=== PATIENT | male | born 1955 | race Caucasian/White ===

== ENCOUNTER 2016-05-25 13:45 | Inpatient (IN) | payer OTHER ==
[~2016-05-25] VITALS: Ht 177.8 cm; Wt 102.1 kg
[2016-05-25 13:58] VITALS: BP 137/92
[2016-05-25] MEDS ORDERED: FLEET ENEMA PR PRN (14:00)
[2016-05-25] MEDS ORDERED: MOM 30ML SUSPENSION UDC PO PRN (14:00)
[2016-05-25] MEDS ORDERED: PERCOCET 5MG/325MG TAB PO PRN ×2 (14:00)
[2016-05-25] MEDS ORDERED: traZODone 50 MG TAB PO PRN (14:15)
--- NOTE | 2016-05-25 15:48 | REP ---
Clinical: Trauma. Fall. Technique: AP and axial views of the right clavicle. Findings: Age-related degenerative changes at the acromioclavicular joint noted with possible acute subluxation. No acute fracture. Impression: Age-related degenerative changes at the acromioclavicular joint. No acute fracture. Signed by Dwayne Shafer MD 05/25/2016 03:39 P
[2016-05-25] MEDS ORDERED: COLA100C PO (15:55)
[2016-05-25] MEDS ORDERED: TRAZ50TA4 PO (15:55)
[2016-05-25] MEDS ORDERED: CIPRODEX AD (15:55)
[2016-05-25] MEDS ORDERED: LIDO5DIS36 TD (15:55)
[2016-05-25] MEDS ORDERED: MIRA33504 PO (15:55)
[2016-05-25] MEDS ORDERED: KEPP1TAB2 PO (15:55)
[2016-05-25] MEDS ORDERED: KETO30VL IV (15:55)
[2016-05-25] MEDS ORDERED: TYLE325T5 PO (15:55)
[2016-05-25] MEDS ORDERED: IPRASOL4 INH (15:56)
[2016-05-25] MEDS ORDERED: MUCI600T34 PO (15:56)
[2016-05-25] MEDS ORDERED: SENN8.6T10 PO (16:01)
[2016-05-25] MEDS ORDERED: HEPA50VL SQ (16:01)
[2016-05-25] MEDS ORDERED: GRX1OIN TOP (16:01)
[2016-05-25] MEDS ORDERED: [UNRECOGNIZED DRUG - CODE] TOP (16:04)
--- NOTE | 2016-05-25 16:21 | HPEPDOC ---
[employer] Note ADMISSION H&P + STAS DATE OF ADMISSION: 05/25/2016 DATE OF SERVICE: 05/25/2016 IDENTIFICATION STATEMENT: Patient is a 60-year-old man with fall from ladder/ off scaffolding sustaining multiple medical injuries including a subarachnoid hemorrhage and skull fracture. Thereve been no significant changes in the patients condition since the preadmission screening. 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 Patient reportedly lost consciousness for at least 1 hour and when he came to was able to call his . The noticed on altered speech and called a friend for help. Patient was initially brought to [facility] where for underwent reduction of dislocation of the right hand fourth and fifth digits as well as left-sided chest tube for pneumothorax. He was transferred as a level II trauma to [facility]. While at [facility] he was evaluated by neurosurgery, but no surgery was indicated. Patient also had discharge from the right ear for which she was evaluated by ENT, dx with fracture through the clivus with acute hemorrhage into the sphenoid sinus. They recommended nasal precautions and ciprodex to the right ear twice a day for 5 days for right canal laceration. Arrangements were made for outpatient follow-up and audiogram after discharge. He underwent serial CAT scans of the head and was placed on Keppra 750 twice a day for seizure prophylaxis. Injuries documented in provided paperwork (no imaging reports or films were provided) include scattered subarachnoid hemorrhages, intraparenchymal hemorrhages, right temporal bone acute linear fracture and acute linear fracture through the clivus and basisphoid with acute hemorrhage into the sphenoid sinus, posterior right sided rib fractures #1 through 11, left sided rib fractures #1 through 2, bilateral pneumothorax status post left chest tube, right adrenal hemorrhage, and right fourth and fifth digit injury. Due to decline in the patients baseline functional status and need for continued medical care, recommendation was for acute rehabilitation. On 2016 the patient was deemed stable for discharge to [facility] inpatient rehabilitation unit. On evaluation today, the patient reports overall feeling much better. He does report intermittent lightheadedness and vertigo. He reports productive cough and difficulty coughing secondary to his rib fracture pain. He reports significant right shoulder pain and difficulty with lifting the right shoulder. New also new is bilateral ankle edema along with modeling bilateral feet. He denies any substernal chest pain, diaphoresis, nausea/vomiting, diaphoresis, constipation/diarrhea or dysuria. PAST MEDICAL HISTORY: Various musculoskeletal minor injuries and lacerations. Patient reports he has abused his right rotator cuff. PAST SURGICAL HISTORY: Laceration repairs ALLERGIES: No known drug allergies MEDICATIONS: Acetaminophen 3 650 mg every 6 hours as needed for pain Proventil metered-dose inhaler 2 puffs every 6 hours as needed for wheezing Dulcolax 10 mg suppository 1 daily as needed Colace 100 mg twice a day Mucinex 600 mg twice a day Heparin 5000 units every 8 hours Lidoderm patch to the ribs every 12 hours Roxicodone 5-10 mg every 3 hours as needed for pain MiraLAX 1 packet daily as needed Senna 2 tabs nightly Trazodone 50 mg daily at bedtime. FAMILY HISTORY: Mother was morbidly obese and soft. From a cardiac issues at the age of 65 to cardiac condition. Father suffered from colitis and at the age of 89 from old age. SOCIAL HISTORY: She lives with his in a two-story apartment home, they live on the first floor there are 5-6 steps to enter the house. There child lives on the second floor. Patient denies use of tobacco, alcohol or illicit drugs, past or present. Review of Systems: General: no chills, +fatigue, no weight changes. Eyes: no change of visionEars, Nose & Throat: +decreased hearing R>L, + discharge from ear. Cardiovascular: no chest pain, claudication, + edema, no syncopal episodes. Pul: +productive cough, no SOB. GI: no abdominal pain, GERD, N/V, C/D , BRBPR/tarry stools, incontinence. Genitourinary: no dysuria. Musculoskeletal: Low back achiness, worse in the morning. Right shoulder pain, aching and sharp worse with trying to use the arm, remits with rest. Denies any radiating neck or lower limb pain, denies any muscle spasms. Neurological: no numbness, paresthesias, no tremors, progressive weakness, seizures, ABDULLAHI. Hematological: No bleeding disorders. Skin: +modeling feet b/l, started yesterday or today. No rashes. Psychiatric: no depression, anxiety, behavioral issues. VITAL SIGNS: Temperature 97.6F, pulse 66, respiratory rate of 20, blood pressure 137/92, 97% saturation on room air. PHYSICAL EXAMINATION: GENERAL: Well nourished, well developed, sitting up in bed, no acute distress. HEENT: +bruising right posterior ear, abrasions on posterior pinna. No facial assymetry. No lymphadenopathy. No jugular venous distention (JVD). No tracheal deviation. PERRL, EOMI. Tongue midline. Dried blood and cerumen in the right ear canal. Decreased hearing right greater than left. Bony prominence/deformity at the right sternoclavicular junction. CARDIOVASCULAR: S1, S2, regular rate. 1+ pitting bipedal edema, no calf tenderness bilaterally LUNGS: Splinting with decreased effort bilaterally, decreased breath sounds but clear to auscultation no wheezing rhonchi or rales appreciated. ABDOMEN: Soft, nontender, nondistended. Positive normoactive bowel sounds throughout. MUSCULOSKELETAL: No tenderness to palpation over the cervical paraspinals. Positive Neers and Aguilar on the right side. Manual muscle testin-/5 right shoulder abduction and flexion, 5/5 remainder of the right upper limb in major muscle groups. I/5 left upper limb and bilateral lower limbs in all major muscle groups. Sensation: Intact to soft touch bilateral upper and lower limbs. Deep tendon reflexes: 2+ biceps and patellar bilaterally NEUROLOGICAL: Alert and oriented x 3. Answers all questions appropriately. Memory seems intact with the exception of immediate pull immediately pre &post trauma where he is has impaired recollection. To follow commands without difficulty. SKIN: +CT site covered w 2x2 and tegaderm, + modeling b/l feet. LABORATORY DATA: No recent labs provided. IMAGING: No imaging provided FUNCTIONAL STATUS, Premorbid: Independent with ADLs and ambulation, worked as a contractor ASSESSMENT AND PLAN: 1. Fall with polytrauma including traumatic subarachnoid hemorrhage, intraparenchymal small hemorrhage, right temporal bone acute fracture and linear fracture through the clivus and basisphoid with acute hemorrhage into the sphenoid sinus, posterior right sided rib fractures #1 through 11, left sided rib fractures #1 through 2, bilateral pneumothorax status post chest tube , right adrenal hemorrhage, right fourth and fifth digit injury with residual right hearing loss, right shoulder impairment and vertigo affecting mobility and ADLs: Patient will undergo thorough physical and occupational therapy followed by daily intensive therapy. Rehabilitation nursing for bladder, bowel, medication management. 2. Right shoulder injury/right sternoclavicular deformity: Given that we were not provided with any imaging, I will obtain x-rays today of the clavicle for evaluation of dislocation. Additionally, clinical evaluation is consistent with rotator cuff disorder. Will provide Flector patch to the right shoulder along with intermittent ice for symptomatic relief. Further workup and medication adjustments as indicated. 3. Pain: Will provide patient with acetaminophen for mild pain and Percocet 1-2 tabs with moderate to severe pain on an as-needed basis. Will also trial Lidoderm patch to the low back (patient states was not sure if the Lidoderm helped for his rib fractures which was how was being used it ROMY). Intermittent ice to the low back. 4. Pulmonary: Bilateral pneumothorax status post chest tube plus multiple bilateral rib fractures with splinting noted on exam. Provide incentive spirometry. Continue albuterol inhaler as needed. Continue Mucinex for productive cough. Monitor for aspiration pneumonia/HAP. 5. DVT prophylaxis: Heparin 5000 units subcutaneous every 8 hours. Well also provide SCD and NAMRATA hose. 6. Bowel: Will provide patient with a bowel regimen to include Colace and senna on a scheduled basis along with milk of magnesia and MiraLAX on an as-needed basis. 7. Anemia of acute blood loss: Will obtain morning labs with further workup/ treatment as indicated. 8. Diet/nutrition: Will obtain a prealbumin with morning labs. Regular diet with nutritional supplements as indicated. POST ADMISSION PHYSICIAN EVALUATION: On evaluation of the patient today there' ve been no significant medical issues or functional changes as compared to those noted in the preadmission screening document. This patient's inpatient rehabilitation remains necessary in light of the above conditions. The patient' s medical condition requires specialized care with physicians specially trained in physical medicine rehabilitation. The patient is capable motivated to participate in a minimum of 3 hours of therapy daily, 5 days minimum per week, and requires intensive inpatient rehabilitation to improve their functional status so that they can be safely to discharge back to their home. PROGNOSIS: Good ESTIMATED LENGTH OF STAY: 5-7 days. / Vital Signs Vital Sign - Last 24 Hours 05/25/16 05/25/16 13:58 14:03 Temp 97.6 Pulse 66 Resp 20 20 B/P 137/92 Pulse Ox 97 O2 Delivery Room Air Home Medications Scheduled Acetaminophen (Tylenol) 325 Mg Tab 650 MG PO QID (Reported) NO HOME MEDS PRIOR TO ADMISSION - STARTED @ [facility] Docusate Sodium (Colace) 100 Mg Cap 100 MG PO BID (Reported) NO HOME MEDS PRIOR TO ADMISSION - STARTED @ [facility] Guaifenesin (Mucinex) 600 Mg Tab 600 MG PO BID NO HOME MEDS PRIOR TO ADMISSION - STARTED @ [facility] Polyethylene Glycol (Miralax) 1 Pow Pow 17 GM PO DAILY (Reported) NO HOME MEDS PRIOR TO ADMISSION - STARTED @ [facility] Senna (Senna Lax) 8.6 Mg Tab 2 TAB PO QHS (Reported) NO HOME MEDS PRIOR TO ADMISSION - STARTED @ [facility] Trazodone HCl (Trazodone HCl) 50 Mg Tab 25 MG PO QHSP NO HOME MEDS PRIOR TO ADMISSION - STARTED @ [facility] Scheduled PRN Albuterol Sulfate (Ventolin Hfa) 200 Puff/8 Gm Aers 2 PUFF INH Q6HP PRN PRN SHORTNESS OF BREATH Allergies Coded Allergies: No Known Drug Allergy (Verified Allergy, Unknown, 05/25/16) KAYLENE CALVERT MD May 25, 2016 16:20 APPLY TO LEFT RIB FRACTURES - STARTED @ [facility] Menthol/Methyl Salicylate (Grx Analgesic [place]) 30 Gm Oint 1 DOSE TOP TID ( Reported) APPLY TO SHOULDER - STARTED AT [facility] Polyethylene Glycol (Miralax) 1 Pow Pow 17 GM PO DAILY (Reported) NO HOME MEDS PRIOR TO ADMISSION - STARTED @ [facility] Senna (Senna Lax) 8.6 Mg Tab 2 TAB PO QHS (Reported) NO HOME MEDS PRIOR TO ADMISSION - STARTED @ [facility] Trazodone HCl (Trazodone HCl) 50 Mg Tab 25 MG PO QHS (Reported) NO HOME MEDS PRIOR TO ADMISSION - STARTED @ [facility] Allergies Coded Allergies: No Known Drug Allergy (Verified Allergy, Unknown, 05/25/16) KAYLENE CALVERT MD May 25, 2016 16:20
[2016-05-25] MEDS: HEPARIN SOD (PORCINE) 5000 UNITS/ML VIAL SC SCH ×2 (17:21→21:07)
[2016-05-25] MEDS: ACETAMINOPHEN TAB 650MG DOSE (2X325MG) PO PRN ×2 (17:23→23:41)
[2016-05-25] MEDS: DICLOFENAC EPOLAMINE 1.3 % PATCH TOP SCH (18:36)
[2016-05-25 20:00] VITALS: BP 155/96
[2016-05-25] MEDS: DOCUSATE SODIUM 100 MG CAP PO SCH (21:00)
[2016-05-25] MEDS ORDERED: SENNA 8.6 MG TAB (SENOKOT) PO SCH (21:00)
[2016-05-25] MEDS: guaiFENesin ER 600 MG TAB PO SCH (21:07)
[2016-05-25] MEDS: LIDOCAINE 5% (LIDODERM) PATCH TD SCH (21:07)
--- NOTE | 2016-05-26 00:29 | CR ---
DATE OF CONSULTATION: 05/25/2016 INDICATION FOR CONSULTATION: Right shoulder sternoclavicular joint dislocation. HISTORY OF THE PRESENT ILLNESS: Mandeep Reaves is a 60-year-old male, polytrauma patient, who sustained a fall from a scaffold approximately 1 week ago. His injuries included subarachnoid hemorrhage with skull fracture, a pneumothorax and multiple rib fractures, in addition to a shoulder injury. The patient was discharged from [facility] and transferred to inpatient rehabilitation at [facility]. Today, the patient complains mainly of shoulder pain and weakness. His shoulder pain is localized to the anterior and lateral aspect of is glenohumeral joint, although he does have some mild discomfort on the anterior aspect of his chest wall near his sternoclavicular joint. The patient does not recall whether or not there was an associated shoulder dislocation at the time of the event. The patient is right-hand dominant. The patient currently denies any numbness, tingling or burning sensations about his right upper extremity. PAST MEDICAL HISTORY: None. PAST SURGICAL HISTORY: Laceration repairs. ALLERGIES: No known drug allergies. MEDICATIONS: - acetaminophen - Proventil - Dulcolax - Colace - Mucinex - heparin - Lidoderm patch - MiraLAX - trazodone for sleep FAMILY HISTORY: Noncontributory. SOCIAL HISTORY: The patient is self-employed. He lives with his in a two-story apartment. The patient does not smoke, drink or use illicit drugs. REVIEW OF SYSTEMS: GENERAL: No fevers, chills or night sweats. NEUROLOGIC: No numbness, tingling or burning sensations; however, positive for recent closed head injury and memory loss. CARDIOVASCULAR: No chest pain or palpitations. RESPIRATORY: Positive for some pain with deep breathing but no shortness of breath. GASTROINTESTINAL: No nausea, vomiting, or diarrhea. PHYSICAL EXAMINATION: VITAL SIGNS: Temperature 97.6, heart rate 66, respiratory rate 20, blood pressure 137/92, pulse oximetry 97% on room air. GENERAL: This is a well nourished male, appears his stated age, in no acute distress. NEUROLOGIC: He is awake, alert and oriented to person, place and time. He has intact sensory and motor function in his right upper extremity axillary, radial and median ulnar anterior interosseous nerve (AIN) and posterior interosseous nerve (PIN) distributions. CARDIOVASCULAR: He has a 2+ radial pulse and brisk capillary refill to all digits of the right upper extremity. SKIN EXAM: No open wounds or abrasions about the right upper extremity. MUSCULOSKELETAL: Focused physical exam of the right shoulder demonstrates visible deformity about the right sternoclavicular joint with palpable anterior dislocation. It is minimally tender to touch. The patient does have maximal tenderness about the posterolateral aspects of the humeral head. The patient has 2 out of 5 supraspinatus strength, 2 out of 5 infraspinatus strength, 4 out of 5 subscapularis strength, 3 out of 5 teres minor strength. He has no tenderness of the acromioclavicular joint. He has full passive shoulder flexion and shoulder abduction. He cannot initiate active shoulder abduction. He has active shoulder flexion to 70 degrees. RADIOGRAPHS: Plain radiographs of the right clavicle demonstrate evidence of displaced sternoclavicular joint. The remainder of the radiographic exam is unremarkable. ASSESSMENT: This is a 60-year-old male, polytrauma patient, with a likely anterior sternoclavicular dislocation and likely massive rotator cuff tear, which may be acute on chronic from his injury. RECOMMENDATIONS: Recommend obtaining a serendipity view of the shoulder to confirm anterior dislocation of the sternoclavicular joint. I had a long discussion with the patient and family regarding the natural history of sternoclavicular joint dislocations. Given that he is within the 3-week window, it is possible to attempt a closed reduction in the operating room; however, the long-term sequela of anterior dislocation of the SC joint is mainly a cosmetic deformity and given that the patient has minimal pain in this area, I do not think that it is his main functional limitation. I believe that the patient's main functional limitation is due to his rotator cuff tear. After discussion with Dr. Mendoza, his primary physician in the hospital, we will obtain an MRI of the right shoulder to evaluate for his rotator cuff tear and he can followup with us on an as needed basis upon hospital discharge to address his likely rotator cuff tear. The patient and his family expressed understanding and agreed with the plan. All questions were answered.
[2016-05-26] MEDS: ACETAMINOPHEN TAB 650MG DOSE (2X325MG) PO PRN ×3 (05:39→20:11)
[2016-05-26] MEDS: HEPARIN SOD (PORCINE) 5000 UNITS/ML VIAL SC SCH ×3 (05:40→21:11)
[2016-05-26] MEDS: DICLOFENAC EPOLAMINE 1.3 % PATCH TOP SCH ×2 (05:41→17:53)
[2016-05-26 06:00] VITALS: BP 141/98
[2016-05-26 07:04] LABS: BASO % 0.3 % (0.0-1.0); EOS # 0.2 K/mm3 (0.0-0.50); EOS % 2.3 % (0.0-3.0); LARGE UNSTAINED CELL # 0.1 K/mm3 (0.0-0.4); LARGE UNSTAINED CELL % 1.4 % (0.0-4.0); LYMPH # 1.2 K/mm3 (1.5-4.5); LYMPH % 10.6 % (24.0-44.0); MEAN CORPUSCULAR HEMOGLOBIN 27.3 pg (27.0-33.0); MEAN CORPUSCULAR HGB CONC 32.6 g/dl (32.0-36.5); MEAN CORPUSCULAR VOLUME 83.7 fl (80.0-96.0); MONO # 0.6 K/mm3 (0.0-0.8); MONO % 6.2 % (0.0-5.0); NEUTROPHILS # 7.8 K/mm3 (1.8-7.7); NEUTROPHILS % 79.2 % (36.0-66.0); PLATELET COUNT, AUTOMATED 297 k/mm3 (150-450); RED CELL DISTRIBUTION WIDTH 13.7 % (11.5-14.5); WHITE BLOOD COUNT 9.9 K/mm3 (4.0-10.0)
[2016-05-26 07:25] LABS: ANION GAP 9 MEQ/L (8-16); BLOOD UREA NITROGEN 23 MG/DL (7-18); CALCIUM LEVEL 8.5 MG/DL (8.5-10.1); CARBON DIOXIDE LEVEL 29 MEQ/L (21-32); CHLORIDE LEVEL 102 MEQ/L (98-107); CREATININE FOR GFR 0.76 MG/DL (0.70-1.30); GLOMERULAR FILTRATION RATE > 60.0 (>56); GLUCOSE, FASTING 95 MG/DL (70-105); POTASSIUM SERUM 4.2 MEQ/L (3.5-5.1); SODIUM LEVEL 140 MEQ/L (136-145)
[2016-05-26 07:34] VITALS: BP 130/82
[2016-05-26] MEDS: **NOTE PATIENT COMMENT** MISC XX SCH (08:34)
[2016-05-26] MEDS: guaiFENesin ER 600 MG TAB PO SCH ×2 (08:40→20:09)
[2016-05-26] MEDS: PANTOPRAZOLE 40MG TAB (PROTONIX) PO SCH (08:40)
[2016-05-26] MEDS: DOCUSATE SODIUM 100 MG CAP PO SCH ×2 (08:40→08:41)
--- NOTE | 2016-05-26 12:13 | IPNPDOC ---
Cardiovascular Lab Director Progress Note PROGRESS NOTE DATE OF ADMISSION: 05/25/2016 DATE OF SERVICE: 05/26/2016 IDENTIFICATION STATEMENT: Patient is a 60-year-old man with fall from ladder/ off scaffolding sustaining multiple medical injuries including a subarachnoid hemorrhage, base skull fx admitted for comprehensive inpatient rehabilitation. PAST MEDICAL HISTORY: Various musculoskeletal minor injuries and lacerations. Patient reports he abused his right rotator cuff. PAST SURGICAL HISTORY: Laceration repairs ALLERGIES: No known drug allergies MEDICATIONS: Acetaminophen 650 mg every 6 hours as needed for pain Proventil metered-dose inhaler 2 puffs every 6 hours as needed for wheezing Colace 100 mg twice a day Mucinex 600 mg twice a day Heparin 5000 units every 8 hours Lidoderm patch to low back qhs, 12 hours Percocet 1-2 tab po q6h prn mod-severe pain MiraLAX 1 packet daily as needed Senna 1 tabs nightly Trazodone 50 mg daily at bedtime. SUBJECTIVE: Patient w/o complaints. Feels ok, slept ok. Feels like Lidoderm helps low back & Flector helps shoulder. Ribs still hurt. Denies any increased SOB, CP, diaphoresis, C/D, N/V, dysuria or frequency. VITAL SIGNS: Temperature 99.3F, pulse 68, respiratory rate of 18, blood pressure 130/98, 96% saturation on room air. PHYSICAL EXAMINATION: GENERAL: Well nourished, well developed, sitting up in chair, no acute distress. HEENT: +bruising right posterior ear, abrasions on posterior pinna. No facial asymmetry. PERRL, EOMI. Bony prominence/deformity at the right sternoclavicular junction. CARDIOVASCULAR: S1, S2, regular rate. 1+ pitting bipedal edema, no calf tenderness bilaterally LUNGS: Splinting with decreased effort bilaterally, decreased breath sounds but clear to auscultation no wheezing rhonchi or rales. ABDOMEN: Soft, nontender, nondistended. Normoactive bowel sounds throughout. MUSCULOSKELETAL: MMT: 3-/5 right shoulder abduction and flexion, 5/5 remainder of the right upper limb in major muscle groups. 5/5 left upper limb and bilateral lower limbs in all major muscle groups. NEUROLOGICAL: Alert and oriented x 3. Answers all questions appropriately. Memory seems intact. Follows commands without difficulty. SKIN: + CT site, + modeling b/l feet (unchanged). LABORATORY DATA: 05/26/16: reviewed, see below IMAGING: Clavicle XR 05/25/16: clavical dislocation, ACJ separation MRI shoulder pending Shoulder XR pending FUNCTIONAL STATUS, Premorbid: Independent with ADLs and ambulation, worked as a contractor ASSESSMENT AND PLAN: 1. Fall with polytrauma including traumatic subarachnoid hemorrhage, intraparenchymal hemorrhage, right temporal bone acute fracture and linear fracture through the clivus and basisphoid with acute hemorrhage into the sphenoid sinus, posterior right sided rib fractures #1 through 11, left sided rib fractures #1 through 2, bilateral pneumothorax status post chest tube, right adrenal hemorrhage, right fourth and fifth digit injury with residual right hearing loss, right shoulder impairment and vertigo affecting mobility and ADLs: Dr. Guerra c/s very much appreciated. Will arrange for outpatient f/ u with Dr. Call. Continue daily physical and occupational therapy. Rehabilitation nursing for bladder, bowel, medication management. 2. Right shoulder injury/right sternoclavicular dislocation: As above, Dr. Jarret rousseau c/s v.much appreciated. Fu remainder of imaging, set up for OP f/u. Symptomatic tx at this time. 3. Pain: Adequately controlled. Continue acetaminophen for mild pain and Percocet 1-2 tabs with moderate to severe pain on an as-needed basis. Continue Lidoderm patch to the low back. Flector right shoulder. Intermittent ice to the low back. 4. Pulmonary: Bilateral pneumothorax status left post chest tube, multiple bilateral rib fractures with splinting: Incentive spirometry. Continue albuterol inhaler as needed. Continue Mucinex for productive cough. Monitor for aspiration pneumonia/HAP. 5. DVT prophylaxis: Heparin 5000 units subcutaneous every 8 hours. Continue SCD and NAMRATA hose. 6. Bowel: Pt refusing Colace & senna, so d/cd prn bowel meds and changed Colace to prn 7. Anemia of acute blood loss: Hgb 13, recheck Sunday. 8. Diet/nutrition: Prealbumin pending. Regular diet with nutritional supplements as indicated. / Vital Signs Vital Sign - Last 24 Hours 05/25/16 05/25/16 05/25/16 05/25/16 13:58 14:03 20:00 20:30 Temp 97.6 98.7 Pulse 66 67 Resp 20 20 18 18 B/P 137/92 155/96 Pulse Ox 97 95 O2 Delivery Room Air Room Air 05/26/16 05/26/16 06:00 07:34 Temp 99.3 Pulse 68 Resp 18 B/P 141/98 130/82 Pulse Ox 96 O2 Delivery Room Air Laboratory Data CBC/BMP Laboratory Tests 05/26/16 06:08 Calcium Level 8.5, Red Blood Count 4.78, Mean Corpuscular Volume 83.7, Mean Corpuscular Hemoglobin 27.3, Mean Corpuscular Hemoglobin Concent 32.6, Red Cell Distribution Width 13.7, Neutrophils (%) (Auto) 79.2 H, Lymphocytes (%) (Auto) 10.6 L, Monocytes (%) (Auto) 6.2 H, Eosinophils (%) (Auto) 2.3, Basophils (%) ( Auto) 0.3, Neutrophils # (Auto) 7.8 H, Lymphocytes # (Auto) 1.2 L, Monocytes # ( Auto) 0.6, Eosinophils # (Auto) 0.2, Basophils # (Auto) 0.0 Labs 24H Laboratory Tests 2 05/26/16 06:08: Anion Gap 9, White Blood Count 9.9, Red Blood Count 4.78, Hemoglobin 13.0L, Hematocrit 40.0L, Mean Corpuscular Volume 83.7, Mean Corpuscular Hemoglobin 27.3 , Mean Corpuscular Hemoglobin Concent 32.6, Red Cell Distribution Width 13.7, Platelet Count 297, Neutrophils (%) (Auto) 79.2H, Lymphocytes (%) (Auto) 10.6L, Monocytes (%) (Auto) 6.2H, Eosinophils (%) (Auto) 2.3, Basophils (%) (Auto) 0.3 , Neutrophils # (Auto) 7.8H, Lymphocytes # (Auto) 1.2L, Monocytes # (Auto) 0.6, Eosinophils # (Auto) 0.2, Basophils # (Auto) 0.0, Blood Urea Nitrogen 23H, Creatinine 0.76, Sodium Level 140, Potassium Level 4.2, Chloride Level 102, Carbon Dioxide Level 29, Calcium Level 8.5, Glomerular Filtration Rate > 60.0, Large Unclassified Cells # 0.1, Large Unclassified Cells % 1.4 Allergies Allergies: Coded Allergies: No Known Drug Allergy (Verified Allergy, Unknown, 2/16/17) Current Medications Current Medications Current Medications Acetaminophen (Tylenol Tab) 650 mg Q4HP PRN PO MILD PAIN (PS 1-4) Last administered on 05/26/16 05:39; Start 05/25/16 at 14:00; Stop 06/24/16 at 13:59 Albuterol Sulfate (Proventil, Ventolin Hfa) 2 puff Q6HP PRN INH SHORTNESS OF BREATH; Start 05/25/16 at 14:15; Stop 06/24/16 at 14:14 Diclofenac Epolamine (Flector 1.3%) 1 patch Q12H TOP Last administered on 05:41; Start 05/25/16 at 18:00; Stop 06/24/16 at 17:59 Docusate Sodium (Colace) 100 mg BID PO ; Start 05/25/16 at 21:00; Stop 06/24/16 at 20:59 Guaifenesin (Mucinex Tab Er) 600 mg BID PO Last administered on 05/26/16 08:40 ; Start 05/25/16 at 21:00; Stop 06/24/16 at 20:59 Heparin Sodium (Porcine) (Heparin) 5,000 units Q8H SC Last administered on 05/26 05:40; Start 05/25/16 at 14:00; Stop 05/30/16 at 13:59 Home Med (Med Rec Complete!) ASDIRECTED XX ; Start 05/25/16 at 16:15; Stop at 16:15; Status DC Lidocaine (Lidoderm Patch) 1 patch QHS TD Last administered on 05/25/16 21:07 ; Start 05/25/16 at 21:00; Stop 06/24/16 at 20:59 Magnesium Hydroxide (Milk Of Magnesia) 30 ml DAILYPRN PRN PO CONSTIPATION; Start 05/25/16 at 14:00; Stop 05/26/16 at 11:56; Status DC Non-Formulary Medication ( See Comment Field Below ) REMOVE LIDODERM PATCH DAILY XX Last administered on 05/26/16 08:34; Start 05/26/16 at 09:00; Stop at 08:59 Oxycodone/ Acetaminophen (Percocet 5mg/ 325mg Tablet) 1 tab Q4HP PRN PO MODERATE PAIN (PS 5-7); Start 05/25/16 at 14:00; Stop 06/01/16 at 13:59 Oxycodone/ Acetaminophen (Percocet 5mg/ 325mg Tablet) 2 tab Q4HP PRN PO SEVERE PAIN (PS 8-10); Start 05/25/16 at 14:00; Stop 06/01/16 at 13:59 Pantoprazole Sodium (Protonix) 40 mg DAILY PO Last administered on 05/26/16 08 :40; Start 05/26/16 at 09:00; Stop 06/25/16 at 08:59 Senna (Senokot) 1 tab QHS PO ; Start 05/25/16 at 21:00; Stop 06/24/16 at 20:59 Sodium Biphosphate/ Sodium Phosphate (Fleet Enema) 1 ea DAILYPRN PRN NM CONSTIPATION; Start 05/25/16 at 14:00; Stop 05/26/16 at 11:56; Status DC Trazodone HCl (Desyrel) 50 mg QHSP PRN PO INSOMNIA Last administered on 23:23; Start 05/25/16 at 14:15; Stop 06/24/16 at 14:14 KAYLENE CALVERT MD May 26, 2016 12:13
--- NOTE | 2016-05-26 12:57 | REP ---
Clinical: Pain. Technique: Internal rotation, external rotation, and Y view. Findings: Acromioclavicular joint separation to approximately 13 mm is suggested and should be correlated clinically. Glenohumeral joint appears intact and normal. Impression: Cannot exclude acromioclavicular joint separation. Signed by Dwayne Shafer MD 05/26/2016 12:48 P
[2016-05-26 14:00] VITALS: BP 140/91
[2016-05-26 20:00] VITALS: BP 136/80
[2016-05-26] MEDS: LIDOCAINE 5% (LIDODERM) PATCH TD SCH (20:09)
[2016-05-26] MEDS ORDERED: SENNA 8.6 MG TAB (SENOKOT) PO PRN (21:00)
[2016-05-26] MEDS: ALBUTEROL 90 MCG/ACT 8GM HFA INHALER INH PRN (23:27)
[2016-05-27 06:00] VITALS: BP 124/70
[2016-05-27] MEDS: DICLOFENAC EPOLAMINE 1.3 % PATCH TOP SCH ×2 (06:01→17:07)
[2016-05-27] MEDS: HEPARIN SOD (PORCINE) 5000 UNITS/ML VIAL SC SCH ×3 (06:01→21:28)
[2016-05-27] MEDS: ALBUTEROL 90 MCG/ACT 8GM HFA INHALER INH PRN ×2 (08:04→17:07)
[2016-05-27] MEDS: PANTOPRAZOLE 40MG TAB (PROTONIX) PO SCH (08:15)
[2016-05-27] MEDS: **NOTE PATIENT COMMENT** MISC XX SCH (08:15)
[2016-05-27] MEDS: guaiFENesin ER 600 MG TAB PO SCH ×2 (08:15→20:20)
[2016-05-27] MEDS ORDERED: DOCUSATE SODIUM 100 MG CAP PO PRN (09:00)
[2016-05-27] MEDS: ACETAMINOPHEN TAB 650MG DOSE (2X325MG) PO PRN ×2 (10:58→20:23)
[2016-05-27 14:00] VITALS: BP 132/83
[2016-05-27 20:00] VITALS: BP 160/84
[2016-05-27] MEDS: LIDOCAINE 5% (LIDODERM) PATCH TD SCH (20:20)
[2016-05-28] MEDS: DICLOFENAC EPOLAMINE 1.3 % PATCH TOP SCH ×2 (05:25→17:35)
[2016-05-28] MEDS: HEPARIN SOD (PORCINE) 5000 UNITS/ML VIAL SC SCH ×3 (05:25→21:54)
[2016-05-28] MEDS: ACETAMINOPHEN TAB 650MG DOSE (2X325MG) PO PRN (05:28)
[2016-05-28 06:00] VITALS: BP 156/84
[2016-05-28 06:41] LABS: MEAN CORPUSCULAR HEMOGLOBIN 28.1 pg (27.0-33.0); MEAN CORPUSCULAR HGB CONC 33.7 g/dl (32.0-36.5); MEAN CORPUSCULAR VOLUME 83.2 fl (80.0-96.0); RED CELL DISTRIBUTION WIDTH 13.5 % (11.5-14.5); WHITE BLOOD COUNT 7.4 K/mm3 (4.0-10.0)
[2016-05-28 06:54] LABS: ANION GAP 7 MEQ/L (8-16); BLOOD UREA NITROGEN 22 MG/DL (7-18); CALCIUM LEVEL 9.1 MG/DL (8.5-10.1); CARBON DIOXIDE LEVEL 30 MEQ/L (21-32); CHLORIDE LEVEL 102 MEQ/L (98-107); CREATININE FOR GFR 0.72 MG/DL (0.70-1.30); GLOMERULAR FILTRATION RATE > 60.0 (>56); GLUCOSE, FASTING 100 MG/DL (70-105); POTASSIUM SERUM 3.9 MEQ/L (3.5-5.1); SODIUM LEVEL 139 MEQ/L (136-145)
[2016-05-28] MEDS: PANTOPRAZOLE 40MG TAB (PROTONIX) PO SCH (08:58)
[2016-05-28] MEDS: guaiFENesin ER 600 MG TAB PO SCH ×2 (08:58→20:36)
[2016-05-28] MEDS: **NOTE PATIENT COMMENT** MISC XX SCH (08:59)
[2016-05-28 14:00] VITALS: BP 125/87
[2016-05-28] MEDS: ALBUTEROL 90 MCG/ACT 8GM HFA INHALER INH PRN (18:38)
[2016-05-28 20:00] VITALS: BP 140/93
[2016-05-28] MEDS: LIDOCAINE 5% (LIDODERM) PATCH TD SCH (20:36)
[2016-05-29] MEDS: ACETAMINOPHEN TAB 650MG DOSE (2X325MG) PO PRN ×4 (00:50→19:35)
[2016-05-29] MEDS: HEPARIN SOD (PORCINE) 5000 UNITS/ML VIAL SC SCH ×3 (05:48→20:45)
[2016-05-29] MEDS: DICLOFENAC EPOLAMINE 1.3 % PATCH TOP SCH ×2 (05:49→20:41)
[2016-05-29 06:00] VITALS: BP 146/96
[2016-05-29] MEDS: PANTOPRAZOLE 40MG TAB (PROTONIX) PO SCH (08:47)
[2016-05-29] MEDS: guaiFENesin ER 600 MG TAB PO SCH ×2 (08:47→20:39)
[2016-05-29] MEDS: **NOTE PATIENT COMMENT** MISC XX SCH (09:00)
--- NOTE | 2016-05-29 11:42 | IPNPDOC ---
Chemical Preparer Progress Note PROGRESS NOTE DATE OF ADMISSION: 05/25/2016 DATE OF SERVICE: 05/29/2016 IDENTIFICATION STATEMENT: Patient is a 60-year-old man with fall from ladder/ off scaffolding sustaining multiple medical injuries including a subarachnoid hemorrhage, base skull fx admitted for comprehensive inpatient rehabilitation. PAST MEDICAL HISTORY: Various musculoskeletal minor injuries and lacerations. Patient reports he abused his right rotator cuff. PAST SURGICAL HISTORY: Laceration repairs ALLERGIES: No known drug allergies MEDICATIONS: Acetaminophen 650 mg every 6 hours as needed for pain Proventil metered-dose inhaler 2 puffs every 6 hours as needed for wheezing Colace 100 mg twice a day Mucinex 600 mg twice a day Heparin 5000 units every 8 hours Lidoderm patch to low back qhs, 12 hours Percocet 1-2 tab po q6h prn mod-severe pain MiraLAX 1 packet daily as needed Senna 1 tabs nightly Trazodone 50 mg daily at bedtime. SUBJECTIVE: Patient w/o complaints. States feels pretty good. Slept ok. Ribs hurt less . Denies any increased SOB, CP, diaphoresis, C/D, N/V, dysuria or frequency. VITAL SIGNS: Temperature 97.7F, pulse 79, respiratory rate of 18, blood pressure 146/96, 98% saturation on room air. PHYSICAL EXAMINATION: GENERAL: Well nourished, well developed, sitting up in chair, no acute distress. HEENT: +bruising right posterior ear, abrasions on posterior pinna. No facial asymmetry. PERRL, EOMI. Bony prominence/deformity at the right sternoclavicular junction. CARDIOVASCULAR: S1, S2, regular rate. Trace pitting left edema, no right LL edema, no calf tenderness bilaterally LUNGS: Splinting with decreased effort bilaterally but improved over admission, decreased breath sounds but clear to auscultation no wheezing rhonchi or rales. ABDOMEN: Soft, nontender, nondistended. Normoactive bowel sounds throughout. MUSCULOSKELETAL: MMT: 3-/5 right shoulder abduction and flexion, 5/5 remainder of the right upper limb in major muscle groups. 5/5 left upper limb and bilateral lower limbs in all major muscle groups. NEUROLOGICAL: Alert and oriented x 3. Answers all questions appropriately. Memory seems intact. Follows commands without difficulty. SKIN: +left CT site-healing. LABORATORY DATA: 05/28/16: reviewed, see below IMAGING: Clavicle XR 05/25/16: clavical dislocation, ACJ separation MRI shoulder: cancelled 2nd patient unable to tolerate Shoulder XR: ACJ separation FUNCTIONAL STATUS, Premorbid: Independent with ADLs and ambulation, worked as a contractor ASSESSMENT AND PLAN: 1. Fall with polytrauma including traumatic subarachnoid hemorrhage, intraparenchymal hemorrhage, right temporal bone acute fracture and linear fracture through the clivus and basisphoid with acute hemorrhage into the sphenoid sinus, posterior right sided rib fractures #1 through 11, left sided rib fractures #1 through 2, bilateral pneumothorax status post chest tube, right adrenal hemorrhage, right fourth and fifth digit injury with residual right hearing loss, right shoulder impairment and vertigo affecting mobility and ADLs: S/p c/s with Dr. Guerra of orthopedics, will arrange for outpatient f/u with Dr. Call. Patient making good gains. Continue daily physical and occupational therapy. Rehabilitation nursing for bladder, bowel, medication management. 2. Right shoulder injury/right sternoclavicular dislocation: As above, s/p c/s Set-up for OP f/u. Symptomatic tx at this time. 3. Pain: Adequately controlled. Continue acetaminophen for mild pain and Percocet 1-2 tabs with moderate to severe pain on an as-needed basis. Continue Lidoderm patch to the low back. Flector right shoulder. Intermittent ice to the low back. 4. Pulmonary: Bilateral pneumothorax status left post chest tube, multiple bilateral rib fractures with splinting. Has better air movmnt today. Continue incentive spirometry. Continue albuterol inhaler as needed. Continue Mucinex for productive cough. Monitor for aspiration pneumonia/HAP. 5. DVT prophylaxis: Heparin 5000 units subcutaneous every 8 hours. Continue SCD and NAMRATA hose. 6. Bowel: Continue Colace prn 7. Anemia of acute blood loss: Hgb ~stable, recheck in am. 8. Diet/nutrition: Regular diet with nutritional supplements. / Vital Signs Vital Sign - Last 24 Hours 05/28/16 05/28/16 05/29/16 14:00 20:00 06:00 Temp 98.9 99.0 97.7 Pulse 77 72 79 Resp 18 18 18 B/P 125/87 140/93 146/96 Pulse Ox 95 95 98 O2 Delivery Room Air Room Air Room Air Allergies Allergies: Coded Allergies: No Known Drug Allergy (Verified Allergy, Unknown, 05/25/16) Current Medications Current Medications Current Medications Acetaminophen (Tylenol Tab) 650 mg Q4HP PRN PO MILD PAIN (PS 1-4) Last administered on 05/29/16 05:52; Start 05/25/16 at 14:00; Stop 06/24/16 at 13:59 Albuterol Sulfate (Proventil, Ventolin Hfa) 2 puff Q6HP PRN INH SHORTNESS OF BREATH Last administered on 05/28/16 18:38; Start 05/25/16 at 14:15; Stop 06/24 at 14:14 Diclofenac Epolamine (Flector 1.3%) 1 patch Q12H TOP Last administered on 05:49; Start 05/25/16 at 18:00; Stop 06/24/16 at 17:59 Docusate Sodium (Colace) 100 mg BID PO ; Start 05/25/16 at 21:00; Stop 05/26/16 at 12:17; Status DC Docusate Sodium (Colace) 100 mg BIDP PRN PO CONSTIPATION; Start 05/27/16 at 09: 00; Stop 06/26/16 at 08:59 Guaifenesin (Mucinex Tab Er) 600 mg BID PO Last administered on 05/29/16 08:47 ; Start 05/25/16 at 21:00; Stop 06/24/16 at 20:59 Heparin Sodium (Porcine) (Heparin) 5,000 units Q8H SC Last administered on 05/29 05:48; Start 05/25/16 at 14:00; Stop 05/30/16 at 13:59 Home Med (Med Rec Complete!) ASDIRECTED XX ; Start 05/25/16 at 16:15; Stop at 16:15; Status DC Lidocaine (Lidoderm Patch) 1 patch QHS TD Last administered on 05/28/16 20:36 ; Start 05/25/16 at 21:00; Stop 06/24/16 at 20:59 Magnesium Hydroxide (Milk Of Magnesia) 30 ml DAILYPRN PRN PO CONSTIPATION; Start 05/25/16 at 14:00; Stop 05/26/16 at 11:56; Status DC Non-Formulary Medication ( See Comment Field Below ) REMOVE LIDODERM PATCH DAILY XX Last administered on 05/29/16 09:00; Start 05/26/16 at 09:00; Stop at 08:59 Oxycodone/ Acetaminophen (Percocet 5mg/ 325mg Tablet) 1 tab Q4HP PRN PO MODERATE PAIN (PS 5-7); Start 05/25/16 at 14:00; Stop 06/01/16 at 13:59 Oxycodone/ Acetaminophen (Percocet 5mg/ 325mg Tablet) 2 tab Q4HP PRN PO SEVERE PAIN (PS 8-10); Start 05/25/16 at 14:00; Stop 06/01/16 at 13:59 Pantoprazole Sodium (Protonix) 40 mg DAILY PO Last administered on 05/29/16 08 :47; Start 05/26/16 at 09:00; Stop 06/25/16 at 08:59 Senna (Senokot) 1 tab QHS PO ; Start 05/25/16 at 21:00; Stop 05/26/16 at 12:17; Status DC Senna (Senokot) 1 tab QHSP PRN PO CONSTIPATION; Start 05/26/16 at 21:00; Stop 06/25/16 at 20:59 Sodium Biphosphate/ Sodium Phosphate (Fleet Enema) 1 ea DAILYPRN PRN SC CONSTIPATION; Start 05/25/16 at 14:00; Stop 05/26/16 at 11:56; Status DC Trazodone HCl (Desyrel) 50 mg QHSP PRN PO INSOMNIA Last administered on 23:23; Start 05/25/16 at 14:15; Stop 06/24/16 at 14:14 KAYLENE CALVERT MD May 29, 2016 11:42
[2016-05-29 14:00] VITALS: BP 129/91
[2016-05-29] MEDS ORDERED: ALBU17IN INH (14:34)
[2016-05-29] MEDS ORDERED: TRAZ50TA4 PO (14:34)
[2016-05-29] MEDS ORDERED: MUCI600T34 PO (14:34)
[2016-05-29] MEDS ORDERED: traZODone 25MG PER 1/2 TABLET PO PRN (14:45)
[2016-05-29] MEDS: ALBUTEROL 90 MCG/ACT 8GM HFA INHALER INH PRN (19:41)
[2016-05-29 20:00] VITALS: BP 137/95
[2016-05-29] MEDS: LIDOCAINE 5% (LIDODERM) PATCH TD SCH (20:42)
[2016-05-30 05:04] VITALS: BP 148/99
[2016-05-30] MEDS: HEPARIN SOD (PORCINE) 5000 UNITS/ML VIAL SC SCH (05:22)
[2016-05-30] MEDS: DICLOFENAC EPOLAMINE 1.3 % PATCH TOP SCH (05:23)
[2016-05-30 06:42] LABS: MEAN CORPUSCULAR HEMOGLOBIN 27.4 pg (27.0-33.0); MEAN CORPUSCULAR HGB CONC 33.3 g/dl (32.0-36.5); MEAN CORPUSCULAR VOLUME 82.5 fl (80.0-96.0); RED CELL DISTRIBUTION WIDTH 13.4 % (11.5-14.5); WHITE BLOOD COUNT 8.1 K/mm3 (4.0-10.0)
[2016-05-30 06:59] LABS: ANION GAP 6 MEQ/L (8-16); BLOOD UREA NITROGEN 15 MG/DL (7-18); CALCIUM LEVEL 8.4 MG/DL (8.5-10.1); CARBON DIOXIDE LEVEL 28 MEQ/L (21-32); CHLORIDE LEVEL 104 MEQ/L (98-107); CREATININE FOR GFR 0.68 MG/DL (0.70-1.30); GLOMERULAR FILTRATION RATE > 60.0 (>56); GLUCOSE, FASTING 103 MG/DL (70-105); POTASSIUM SERUM 4.2 MEQ/L (3.5-5.1); SODIUM LEVEL 138 MEQ/L (136-145)
[2016-05-30] MEDS: PANTOPRAZOLE 40MG TAB (PROTONIX) PO SCH (08:36)
[2016-05-30] MEDS: **NOTE PATIENT COMMENT** MISC XX SCH (08:37)
[2016-05-30] MEDS: guaiFENesin ER 600 MG TAB PO SCH (08:37)
--- NOTE | 2016-05-30 10:30 | DS.PDOC ---
Employment Office Clerk Discharge Note DISCHARGE SUMMARY DATE OF ADMISSION: 05/25/2016 DATE OF DISCHARGE: 05/30/2016 DISCHARGE DIAGNOSES 1. Fall with polytrauma including traumatic subarachnoid hemorrhage, intraparenchymal hemorrhage, right temporal bone acute fracture and linear fracture through the clivus and basisphoid with acute hemorrhage into the sphenoid sinus, posterior right sided rib fractures #1 through 11, left sided rib fractures #1 through 2, bilateral pneumothorax status post chest tube, right adrenal hemorrhage, right fourth and fifth digit injury with residual right hearing loss, right shoulder impairment and vertigo affecting mobility and ADLs 2. Right sternoclavicular dislocation 3. Right rotator cuff tear, likely 4. Bilateral pneumothorax status left post chest tube 5. Anemia of acute blood loss IDENTIFICATION STATEMENT: Patient is a 60-year-old man with fall from ladder/ off scaffolding sustaining multiple injuries including a subarachnoid hemorrhage , base skull fx admitted for comprehensive inpatient rehabilitation. PAST MEDICAL HISTORY: Various musculoskeletal minor injuries and lacerations. Patient reports he abused his right rotator cuff. PAST SURGICAL HISTORY: Laceration repairs HOSPITAL COURSE The patient underwent daily physical and occupational therapy. He tolerated his therapy sessions well and made progressive gains. He met his functional goals and was deemed stable for discharge on 05/30/16. Issues addressed while on the rehabilitation unit are outlined as follows: 1. Right shoulder injury/right sternoclavicular dislocation: S/p radiographs. Patient unable to tolerate MRI of shoulder 2nd rib pain. Patient was evaluated by Dr. Wheat of orthopedic service and set-up for OP f/u. 2. Pain: Patient was provided with acetaminophen and Percocet on an as-needed basis. He did not require any Percocet during his rehabilitation stay. He was also provided with Lidoderm patch to the low back, Flector patch to the right shoulder and intermittent ice. Overall patients pain remained adequately controlled and was improved by the time of discharge. 3. Pulmonary: Bilateral pneumothorax status left post chest tube, multiple bilateral rib fractures with splinting. He was provided with incentive spirometry, albuterol inhaler on an as-needed basis along with Mucinex. Patient had better air movement at the time of discharge. 4. DVT prophylaxis: Provided with Heparin 5000 units subcutaneous every 8 hours along with SCD and NAMRATA hose. 5. Bowel: Continue Colace prn. 6. Anemia of acute blood loss: Hgb remained relatively stable. FUNCTIONAL STATUS on discharge: She was independent with ambulation, transfers able to ascend and descend 12 steps with a handrail. He was independent to modified independent with his ADLs. VITAL SIGNS: Temperature 97.6F, pulse 73, respiratory rate of 18, blood pressure 148/99, 96% saturation on room air. PHYSICAL EXAMINATION: GENERAL: Well nourished, well developed, sitting up in chair, no acute distress. HEENT: +bruising right posterior ear resolved, abrasions on posterior pinna healing. No facial asymmetry. PERRL, EOMI. Bony prominence/deformity at the right sternoclavicular junction. CARDIOVASCULAR: S1, S2, regular rate. Trace pitting left edema, no right LL edema, no calf tenderness bilaterally LUNGS: Splinting with decreased effort bilaterally but improved over admission, decreased breath sounds but clear to auscultation no wheezing rhonchi or rales. ABDOMEN: Soft, nontender, nondistended. Normoactive bowel sounds throughout. MUSCULOSKELETAL: AROM right shoulder: 0-45 abduction MMT: 3-/5 right shoulder abduction and flexion, 5/5 remainder of the right upper limb in major muscle groups. 5/5 left upper limb and bilateral lower limbs in all major muscle groups. NEUROLOGICAL: Alert and oriented x 3. Answers all questions appropriately. Memory seems intact. Follows commands without difficulty. SKIN: +left CT site-healing. LABORATORY DATA: 05/30/16: reviewed, see below IMAGING: Clavicle XR 05/25/16: clavicle dislocation, ACJ separation MRI shoulder: cancelled 2nd patient unable to tolerate Shoulder XR: ACJ separation ALLERGIES: No known drug allergies MEDICATIONS: Acetaminophen 650 mg every 6 hours as needed for pain Proventil metered-dose inhaler 2 puffs every 6 hours as needed for wheezing Colace 100 mg twice a day prn Mucinex 600 mg twice a day Trazodone 25 mg daily at bedtime prn DISCHARGE DISPOSITION: 1. The patient discharge home with family 2. The patient discharged in stable condition 3. Post discharge follow-up medical appointments: PCP, [facility] ( neurosurgeon, surgery and ENT) and Dr. Call (orthopedics). / Vital Signs/I&O Vital Sign - Last 24 Hours 05/29/16 05/29/16 05/29/16 05/30/16 14:00 19:43 20:00 05:04 Temp 98.1 98.9 97.6 Pulse 81 68 73 Resp 18 18 18 B/P 129/91 137/95 148/99 Pulse Ox 97 96 96 O2 Delivery Room Air Room Air Room Air Room Air 05/30/16 08:00 O2 Delivery Room Air I&O- Last 24 Hours up to 6 AM 05/30/16 06:00 Intake Total 1080 ml Balance 1080 ml Laboratory Data CBC/BMP Laboratory Tests 05/30/16 06:29 Calcium Level 8.4 L, Red Blood Count 4.69, Mean Corpuscular Volume 82.5, Mean Corpuscular Hemoglobin 27.4, Mean Corpuscular Hemoglobin Concent 33.3, Red Cell Distribution Width 13.4 Labs 48H Laboratory Tests 05/30/16 06:29: Anion Gap 6L, Blood Urea Nitrogen 15, Creatinine 0.68L, Sodium Level 138, Potassium Level 4.2, Chloride Level 104, Carbon Dioxide Level 28, Calcium Level 8.4L, Fasting Glucose 103, Glomerular Filtration Rate > 60.0, White Blood Count 8.1, Red Blood Count 4.69, Hemoglobin 12.9L, Hematocrit 38.7L, Mean Corpuscular Volume 82.5, Mean Corpuscular Hemoglobin 27.4, Mean Corpuscular Hemoglobin Concent 33.3, Red Cell Distribution Width 13.4, Platelet Count 369, Prealbumin 22.3 Medications Medications Current Medications Acetaminophen (Tylenol Tab) 650 mg Q4HP PRN PO MILD PAIN (PS 1-4) Last administered on 05/29/16 19:35; Start 05/25/16 at 14:00; Stop 06/24/16 at 13:59 Albuterol Sulfate (Proventil, Ventolin Hfa) 2 puff Q6HP PRN INH SHORTNESS OF BREATH Last administered on 05/29/16 19:41; Start 05/25/16 at 14:15; Stop 06/24 at 14:14 Diclofenac Epolamine (Flector 1.3%) 1 patch Q12H TOP Last administered on 05:23; Start 05/25/16 at 18:00; Stop 06/24/16 at 17:59 Docusate Sodium (Colace) 100 mg BID PO ; Start 05/25/16 at 21:00; Stop 05/26/16 at 12:17; Status DC Docusate Sodium (Colace) 100 mg BIDP PRN PO CONSTIPATION; Start 05/27/16 at 09: 00; Stop 06/26/16 at 08:59 Guaifenesin (Mucinex Tab Er) 600 mg BID PO Last administered on 05/30/16 08:37 ; Start 05/25/16 at 21:00; Stop 06/24/16 at 20:59 Heparin Sodium (Porcine) (Heparin) 5,000 units Q8H SC Last administered on 05/30 05:22; Start 05/25/16 at 14:00; Stop 05/30/16 at 13:59 Home Med (Med Rec Complete!) ASDIRECTED XX ; Start 05/25/16 at 16:15; Stop at 16:15; Status DC Lidocaine (Lidoderm Patch) 1 patch QHS TD Last administered on 05/29/16 20:42 ; Start 05/25/16 at 21:00; Stop 06/24/16 at 20:59 Magnesium Hydroxide (Milk Of Magnesia) 30 ml DAILYPRN PRN PO CONSTIPATION; Start 05/25/16 at 14:00; Stop 05/26/16 at 11:56; Status DC Non-Formulary Medication ( See Comment Field Below ) REMOVE LIDODERM PATCH DAILY XX Last administered on 05/30/16 08:37; Start 05/26/16 at 09:00; Stop at 08:59 Oxycodone/ Acetaminophen (Percocet 5mg/ 325mg Tablet) 1 tab Q4HP PRN PO MODERATE PAIN (PS 5-7); Start 05/25/16 at 14:00; Stop 06/01/16 at 13:59 Oxycodone/ Acetaminophen (Percocet 5mg/ 325mg Tablet) 2 tab Q4HP PRN PO SEVERE PAIN (PS 8-10); Start 05/25/16 at 14:00; Stop 06/01/16 at 13:59 Pantoprazole Sodium (Protonix) 40 mg DAILY PO Last administered on 05/30/16 08 :36; Start 05/26/16 at 09:00; Stop 06/25/16 at 08:59 Senna (Senokot) 1 tab QHS PO ; Start 2/16/17 at 21:00; Stop 05/26/16 at 12:17; Status DC Senna (Senokot) 1 tab QHSP PRN PO CONSTIPATION; Start 05/26/16 at 21:00; Stop 06/25/16 at 20:59 Sodium Biphosphate/ Sodium Phosphate (Fleet Enema) 1 ea DAILYPRN PRN [place] CONSTIPATION; Start 05/25/16 at 14:00; Stop 05/26/16 at 11:56; Status DC Trazodone HCl (Desyrel) 25 mg QHSP PRN PO INSOMNIA; Start 05/29/16 at 14:45; Stop 06/28/16 at 14:44 Trazodone HCl (Desyrel) 50 mg QHSP PRN PO INSOMNIA Last administered on t 23:23; Start 05/25/16 at 14:15; Stop 05/29/16 at 14:35; Status DC Scheduled Acetaminophen (Tylenol) 325 Mg Tab 650 MG PO QID (Reported) NO HOME MEDS PRIOR TO ADMISSION - STARTED @ [facility] Docusate Sodium (Colace) 100 Mg Cap 100 MG PO BID (Reported) NO HOME MEDS PRIOR TO ADMISSION - STARTED @ [facility] Guaifenesin (Mucinex) 600 Mg Tab 600 MG PO BID NO HOME MEDS PRIOR TO ADMISSION - STARTED @ [facility] Polyethylene Glycol (Miralax) 1 Pow Pow 17 GM PO DAILY (Reported) NO HOME MEDS PRIOR TO ADMISSION - STARTED @ [facility] Senna (Senna Lax) 8.6 Mg Tab 2 TAB PO QHS (Reported) NO HOME MEDS PRIOR TO ADMISSION - STARTED @ [facility] Trazodone HCl (Trazodone HCl) 50 Mg Tab 25 MG PO QHSP INSOMNIA NO HOME MEDS PRIOR TO ADMISSION - STARTED @ [facility] Scheduled PRN Albuterol Sulfate (Ventolin Hfa) 200 Puff/8 Gm Aers 2 PUFF INH Q6HP PRN PRN SHORTNESS OF BREATH Allergies Coded Allergies: No Known Drug Allergy (Verified Allergy, Unknown, 05/25/16) KAYLENE CALVERT MD May 30, 2016 10:30
[2016-05-30] MEDS ORDERED: ALBU17IN INH (14:59)
== END 2016-05-30 11:05 | disposition home or self-care (01) | DRG 862 ==
LOC: M PM&R 13:45
PROVIDERS: ADMIT Physical Medicine & Rehabilitation; ATTEND Physical Medicine & Rehabilitation
DX: S06.6X Traumatic subarachnoid hemorrhage (principal); D62 Acute posthemorrhagic anemia; S42.011D Anterior displaced fracture of sternal end of right clavicle, subsequent encounter for fracture with routine healing; S02.19XD Other fracture of base of skull, subsequent encounter for fracture with routine healing; W11.XXXD Fall on and from ladder, subsequent encounter; Y99.0 Civilian activity done for income or pay; Y92.61 Building [any] under construction as the place of occurrence of the external cause; I69.198 Other sequelae of nontraumatic intracerebral hemorrhage; H91.91 Unspecified hearing loss, right ear; R42 Dizziness and giddiness; I69.098 Other sequelae following nontraumatic subarachnoid hemorrhage; S22.43XD Multiple fractures of ribs, bilateral, subsequent encounter for fracture with routine healing; Z79.891 Long term (current) use of opiate analgesic; Z79.899 Other long term (current) drug therapy; S46.011D Strain of muscle(s) and tendon(s) of the rotator cuff of right shoulder, subsequent encounter; S27.0XXD Traumatic pneumothorax, subsequent encounter